=== PATIENT | female | born 1935 | race Caucasian/White ===

== ENCOUNTER → 2017-02-14 | Outpatient (CLI) | payer MEDICARE ==
--- NOTE | 2017-02-14 17:20 | MRI ---
EXAM DESCRIPTION: Lumbar Spine w/o Contrast CLINICAL HISTORY: RADICULOPATHY LUMBAR REGION bilateral leg pain and numbness. COMPARISON: None Available. TECHNIQUE: MRI of the lumbar spine is performed according to our usual protocol with axial and sagittal multi sequence imaging. FINDINGS: Multilevel advanced degenerative changes with dextroscoliosis of the spine centered at the L1-2 level with advanced endplate degenerative changes and disc narrowing along the left side at this level and on the right particularly at the L4-5 level. No aortic aneurysm or retroperitoneal or paraspinous abnormality is seen. Marrow destructive changes are not apparent. The conus is positioned at the lower T12 level with no evidence of intradural or intramedullary abnormality noted. Diffuse disc desiccation and narrowing is present with no specific abnormality noted at the lower thoracic spine. At T12-L1 1 moderate bulging annulus without severe stenosis is present. L1-2: Disc degeneration and desiccation with endplate reactive changes on the left along the lesser curvature of the scoliotic spine with left foraminal narrowing and lateral recess narrowing with adequate canal and neural foramen centrally and on the right. A lateralizing herniation is not apparent. L2-3: Disc desiccation and narrowing and degeneration with asymmetric left lateral recess and foraminal encroachment from the scoliotic curve with adequate canal and foramina to the right of midline. Very slight retrolisthesis at this level noted. L3-4: Disc desiccation and broad-based annular bulge with adequate canal with moderately narrowed right neural foramen and adequate left neural foramen at this level. A lateralizing herniation is not apparent. L4-5: Annular bulge and disc desiccation with severely degenerative right facet joint with marked narrowing of the right lateral recess and neural foramen. Mild central spinal canal stenosis is present with encroachment predominantly on the right from the facet disease and reversal of the scoliotic curve L5-S1: Disc desiccation and annular bulge with adequate central canal and severe right sided facet arthropathy encroaching particularly upon the right L5 neural foramen with adequate left neural foramen. IMPRESSION: 1. Advanced multilevel diffuse disc degeneration and narrowing and disc desiccation with moderately severe S-shaped scoliosis of the thoracic spine convex to the right at the L1-2 level with reversal of the curve at the lumbosacral junction. 2. On the right there is significant right L4 and right L5 foraminal narrowing with borderline central canal stenosis and lateral recess stenosis on the right at the L4-5 level. 3. Adequate spinal canal with predominant left lateral recess and foraminal stenosis at L1-2 and L2-3. 4. At L3-4 the changes are relatively symmetric with the right L3 neural foramen and moderately narrowed. Electronically signed by: Nitesh Santa MD 02/14/2017 5:18 PM CDT
== END | disposition home or self-care (01) ==
LOC: MRI 08:08
PROVIDERS: ATTEND Family Medicine
DX: M51.36 Other intervertebral disc degeneration, lumbar region (principal); M54.16 Radiculopathy, lumbar region

== ENCOUNTER → 2017-12-15 | Outpatient (CLI) | payer MEDICARE ==
--- NOTE | 2017-12-16 13:19 | MAM ---
EXAM DESCRIPTION: 3D Screening BILATERAL : Digital Mammography. CLINICAL HISTORY: 82 years Female SCREENING . Breast cancer left 1997 with mastectomy. Sister with breast cancer. Childbirth. Postmenopausal. Has taken HRT 5 or more years ago.. COMPARISON: Right breast digital 2-D mammography 10/20/2015.. No prior reports available. TECHNIQUE: Right CC and MLO projection full-field images, 3-D tomosynthesis digital mammographic technique. CAD not utilized. Right 2-D digital full-field images, MLO and CC projections, non-displaced, with CAD. FINDINGS: Right breast parenchymal density pattern is: Scattered areas of fibroglandular density. No skin thickening or nipple retraction. Right breast vascular calcifications. Solitary microcalcifications. No focal, stellate mass or density, focal asymmetry , and no suspicious microcalcifications right breast. Stable mammograms compared to prior study, taking into account differences in mammographic technique IMPRESSION: BI-RADS CATEGORY: 2 - BENIGN FINDINGS. FOLLOW UP: Routine digital right breast screening, one year interval from November 2017. Written communication explaining the IMPRESSION and follow-up, will be mailed to the patient and referring health care provider. According to the [employer], yearly mammograms are recommended starting at age 40 and continuing as long as a woman is in good health. Any breast change noted on a breast self-exam should be reported promptly to the patient's healthcare provider. Breast MRI is recommended for women with an approximately 20-25% or greater lifetime risk of breast cancer, including women with a strong family history of breast or ovarian cancer and women who have been treated for Hodgkin's disease. A negative mammographic report should not delay tissue diagnosis in patients with significant clinical history or physical findings. Extremely dense breast tissue limits the sensitivity of digital mammography. Electronically signed by: Howard Cabrera MD 12/16/2017 1:18 PM CDT
== END ==
LOC: MAMMO 08:25
PROVIDERS: ATTEND Family Medicine
DX: Z12.31 Encounter for screening mammogram for malignant neoplasm of breast (principal)

== ENCOUNTER 2018-04-24 05:25 | Day surgery (SDC) | payer MEDICARE ==
[2018-04-24] MEDS ORDERED: TOBRAMYCIN SULF 0.3 % OPHT SOL 1 DROP OPHTH ONE (06:01)
[2018-04-24] MEDS ORDERED: TROP 1%/CYCLOPEN 1%/PHENYL 2% DROPS ONE (06:01)
[2018-04-24] MEDS ORDERED: PROPARACAINE 0.5% OPHTH SOL 15 ML BTTL ONE (06:01)
[2018-04-24] MEDS ORDERED: MIDAZOLAM INJ 2 MG/2 ML VIAL ONE (06:38)
== END 2018-04-24 09:00 | disposition home or self-care (01) ==
LOC: AMB 05:25
PROVIDERS: ATTEND Ophthalmology
DX: H26.492 Other secondary cataract, left eye (principal)

== ENCOUNTER → 2019-01-30 | Outpatient (CLI) | payer MEDICARE | LOC: GMAH 10:40 | PROVIDERS: ATTEND Family Medicine | DX: I10 Essential (primary) hypertension (principal) ==

== ENCOUNTER 2019-02-02 13:22 | Observation (INO) | payer MEDICARE ==
--- NOTE | 2019-02-02 13:50 | ED.PDOC ---
History of Present Illness - General Chief Complaint: General Stated Complaint: fall; right leg heaviness Time Seen by Provider: 02/02/19 13:32 Source: patient Exam Limitations: no limitations - History of Present Illness Initial Comments: SHE WAS DOING LAPS IN HER SWIMMING POOL. SHE DID 40 LAPS AND SUDDENLY SHE FELT DIZZY (AROUND 10 AM) AND WHILE TRYING TO GET OUT OF THE SWIMMING POOL SHE NOTICED THAT SHE WAS DRAGGING HER RIGHT LEG. WITH DIFFICULTY SHE WAS ABLE TO GET OUT OF THE POOL AND THEN CRAWLED TO HER HOME WHERE SHE CALLED FOR ASSISTANCE. SHE MANAGED TO MOVE WITH HER WALKER AND THEN HER DAUGHTER BROUGHT HER BY POV TO THE ED. SHE VOICES THAT SHE HAS HAD A TIA IN THE PAST, SUFFERS OF HTN AND HAS PERIPHERAL NEUROPATHY. DR. CALHOUN GAVE HER A CLEAN BILL OF HEALTH JUST LAST WEEK. SHE DENIES DYSARTHRIA OR CONFUSION. Timing/Duration: 4-6 hours Severity: moderate Improving Factors: nothing Worsening Factors: nothing Associated Symptoms: denies symptoms Allergies/Adverse Reactions: Allergies NO KNOWN ALLERGY Allergy (Verified 04/01/16 17:27) Home Medications: Ambulatory Orders Gabapentin 1,200 mg PO BEDTIME 04/01/16 Hydrochlorothiazide 12.5 mg PO DAILY 02/02/19 Losartan Potassium 100 mg PO DAILY 02/02/19 Review of Systems - Review of Systems Constitutional: States: no symptoms reported EENTM: States: no symptoms reported Respiratory: States: no symptoms reported Cardiology: States: no symptoms reported Gastrointestinal/Abdominal: States: no symptoms reported Genitourinary: States: no symptoms reported Musculoskeletal: States: no symptoms reported Skin: States: no symptoms reported Neurological: States: weakness Endocrine: States: no symptoms reported Hematologic/Lymphatic: States: no symptoms reported Past Medical History (General) - Patient Medical History Hx Seizures: No Hx Stroke: No Hx Asthma: No Hx of COPD: No Hx Congestive Heart Failure: No Hx Pacemaker: No Hx Hypertension: Yes Hx Diabetes: No Hx Gastroesophageal Reflux: No Hx MRSA: No - Social History Hx Alcohol Use: No Hx Substance Use: No Hx Physical Abuse: No Hx Emotional Abuse: No Family Medical History - Family History Mother Living Status: Age at (years of age): 95 Cause of : PA Hx Family Asthma: No Hx Family Congestive Heart Failure: No Hx Family Hypertension: No Hx Family Stroke: No Hx Cardiac Disease: No Hx Family Diabetes: No Hx Family Cancer: No Father Living Status: Hx Cardiac Disease: Yes Physical Exam - Physical Exam General Appearance: Alert, Well Developed, Well Groomed Eye Exam: left normal, left abnormal EOM Ears, Nose, Throat: hearing grossly normal Neck: non-tender Respiratory: chest non-tender, lungs clear Cardiovascular/Chest: normal peripheral pulses, regular rate, rhythm Gastrointestinal/Abdominal: non tender, no organomegaly Back Exam: other - HAS A HX OF SCOLIOSIS Extremity: normal range of motion Neurologic: no motor/sensory deficits, alert, normal mood/affect - NO MOTOR WEAKNESS NOTED. ABLE TO MOVE ALL FOUR EXTREMITIES, MOTOR STRENGTH 5/5 ALL FOUR EXTREMITIES. , oriented x 3 Skin Exam: normal color Progress - Progress Progress: 02/02/19 15:32 I HAVE AMBULATED THIS PATIENT TWISE. SHE IS ABLE TO WALK WITH HER QUAD CANE, BUT VOICES THAT SHE IS STILL FEELING THAT LEG SOMEWHAT WEAK. THE LAST TIME IS VOICES THAT THE WEAKNESS SEEMS IMPROVED. I HAVE SPOKEN TO MARIBELL PRECIADO, HOSPITALIST AND WILL KEEP IN ONSERVATION. - Results/Orders Results/Orders: EKG: HR OF 59, OK INTERVAL OF 122, QRS OF 70, QTC OF 421, AXES OF 6 DEGREES. IMPRESSION: SINUS BRADYCARDIA 02/02/19 14:00 EKG STAT Laboratory Results WBC 6.5 K/mm3 (4.8-10.8) 02/02/19 14:06 RBC 4.84 M/mm3 (4.20-5.40) 02/02/19 14:06 Hgb 14.7 gm/dL (12.0-16.0) 02/02/19 14:06 Hct 44.6 % (36.0-47.0) 02/02/19 14:06 MCV 92.1 fl (81.0-99.0) 02/02/19 14:06 MCH 30.3 pg (27.0-31.0) 02/02/19 14:06 MCHC 32.9 g/dL (33.0-37.0) L 02/02/19 14:06 RDW 14.5 % (11.5-14.5) 02/02/19 14:06 Plt Count 223 K/mm3 (130-400) 02/02/19 14:06 MPV 8.7 fl (7.40-10.4) 02/02/19 14:06 Absolute Neuts (auto) 4.90 K/uL (1.8-6.8) 02/02/19 14:06 Absolute Lymphs (auto) 1.10 K/uL (1.0-3.4) 02/02/19 14:06 Absolute Monos (auto) 0.40 K/uL (0.2-0.8) 02/02/19 14:06 Absolute Eos (auto) 0.00 K/uL (0.0-0.4) 02/02/19 14:06 Absolute Basos (auto) 0.00 K/uL (0.0-0.1) 02/02/19 14:06 Neutrophils % 75.4 % (42.0-78.0) 02/02/19 14:06 Lymphocytes % 16.9 % (20.0-50.0) L 02/02/19 14:06 Monocytes % 6.8 % (2.0-9.0) 02/02/19 14:06 Eosinophils % 0.4 % (1.0-5.0) L 02/02/19 14:06 Basophils % 0.5 % (0.0-2.0) 02/02/19 14:06 ESR 2 mm/hr (0-30) 02/02/19 14:06 PT 10.4 SECONDS (9.0-10.9) 02/02/19 14:06 INR 1.04 (0.9-1.15) 02/02/19 14:06 PTT (SP) 24.4 SECONDS (21.8-31.6) 02/02/19 14:06 Sodium 143 mmol/L (135-145) 02/02/19 14:06 Potassium 3.5 mmol/L (3.6-5.0) L 02/02/19 14:06 Chloride 105 mmol/L (101-111) 02/02/19 14:06 Carbon Dioxide 27 mmol/L (21-31) 02/02/19 14:06 Anion Gap 14.5 (12-18) 02/02/19 14:06 BUN 18 mg/dL (7-18) 02/02/19 14:06 Creatinine 1.00 mg/dL (0.6-1.3) 02/02/19 14:06 BUN/Creatinine Ratio 18.0 (10-20) 02/02/19 14:06 Random Glucose 124 mg/dL (70-105) H 02/02/19 14:06 Serum Osmolality 288.3 mOsm/L (275-295) 02/02/19 14:06 CT HEAD: NO ABNORMALITY Calcium 9.7 mg/dL (8.4-10.2) 02/02/19 14:06 Total Bilirubin 0.8 mg/dL (0.2-1.0) 02/02/19 14:06 AST 22 IU/L (10-42) 02/02/19 14:06 ALT 13 IU/L (10-60) 02/02/19 14:06 Alkaline Phosphatase 68 IU/L (42-121) 02/02/19 14:06 Serum Total Protein 7.2 gm/dL (6.4-8.2) 02/02/19 14:06 Albumin 4.0 g/dl (3.2-5.5) 02/02/19 14:06 Globulin 3.2 gm/dL (2.3-3.5) 02/02/19 14:06 Albumin/Globulin Ratio 1.3 (1.1-1.9) 02/02/19 14:06 Urine Color Yellow (Yellow) 02/02/19 14:47 Urine Appearance Clear (Clear) 02/02/19 14:47 Urine pH 7.0 (4.5-7.8) 02/02/19 14:47 Ur Specific [place] 1.015 (1.005-1.030) 02/02/19 14:47 Urine Protein Negative mg/dL 02/02/19 14:47 Urine Glucose (UA) Negative mg/dL (Negative) 02/02/19 14:47 Urine Ketones Negative mg/dL (NEGATIVE) 02/02/19 14:47 Urine Blood Negative (Negative) 02/02/19 14:47 Urine Nitrite Negative 02/02/19 14:47 Urine Bilirubin Negative (NEGATIVE) 02/02/19 14:47 Urine Urobilinogen 0.2 mg/dL (0.2-1.0) 02/02/19 14:47 Ur Leukocyte Esterase Negative (Negative) 02/02/19 14:47 Urine RBC 0 /hpf 02/02/19 14:47 Urine WBC 0-1 /hpf 02/02/19 14:47 Ur Epithelial Cells 0-1 /hpf 02/02/19 14:47 Urine Bacteria 0 02/02/19 14:47 CT HEAD: NO ABNORMALITY NOTED. Departure - Departure Clinical Impression: Right leg weakness Time of Disposition: 15:34 Disposition: Admit Patient Condition: Good Departure Forms: ED Discharge - Pt. Copy, Patient Portal Self Enrollment Referrals: Seth Calhoun MD [Primary Care Provider] - 1-2 Weeks Home Medications: Ambulatory Orders Gabapentin 1,200 mg PO BEDTIME 04/01/16 Hydrochlorothiazide 12.5 mg PO DAILY 02/02/19 Losartan Potassium 100 mg PO DAILY 02/02/19 Decision To Admit - Decistion To Admit Decision to Admit Date: 01/26/19 Decision to Admit Time: 15:34
--- NOTE | 2019-02-02 14:33 | CT ---
Study: CT of the Head. Indication: RIGHT LEG WEAKNESS Technique: Axial CT images of the head were acquired without intravenous contrast. This exam was performed according to our departmental dose-optimization program, which includes automated exposure control, adjustment of the mA and/or kV according to patient size and/or use of iterative reconstruction technique. Comparison: None. Findings: No acute ischemia, acute hemorrhage, mass, mass effect, midline shift, or extra-axial fluid collection identified by CT. Ventricles are normal in configuration without hydrocephalus. Extensive hypoattenuation of the periventricular and subcortical white matter noted. This is nonspecific but most consistent with chronic microvascular ischemic change. Global parenchymal volume loss and intracranial atherosclerosis noted as well. Paranasal sinuses are adequately aerated. Mastoid air cells are adequately aerated. Osseous structures and soft tissues are unremarkable. Impression: No acute intracranial abnormality by CT. Senescent changes. Electronically signed by: Blue Burroughs MD 02/02/2019 2:31 PM CDT
--- NOTE | 2019-02-02 16:06 | HP ---
SUPERVISING PHYSICIAN: Robert Clark M.D. CHIEF COMPLAINT: Right leg weakness and dizziness. HISTORY OF PRESENT ILLNESS: This is a 89 year-old female patient who was doing laps in her swimming pool. She did 40 laps and suddenly she felt very dizzy. Her ears were very stopped up. She tried to get out of the pool and she was dragging her right leg. She was able to get out of her pool with difficulty and then crawled into her home where she called her daughter for assistance. She did manage to get up and use her walker. Her daughter brought her to the Emergency Room in a private vehicle. In the Emergency Room, most of her symptoms had resolved. She still was having some weakness in that right leg and she had some weakness in her right arm, but she was able to speak clearly. There was no altered mental status. There was no facial drooping or facial numbness. She did have an elevated blood pressure on admission to the hospital which showed a blood pressure of 176/87. She has had a transient ischemic attack in the past. In the E. R., her vital signs showed a temperature of 97.7 with a heart rate of 84, blood pressure 176/87, subsequent blood pressure is 157/105, respiratory rate 20, O2 sat 93% on room air. Lab was drawn and CBC was unremarkable. She had an ESR of 2. Chemistry was unremarkable with the exception of her potassium was slightly low at 3.5 and glucose was slightly high at 124. Urinalysis was negative. Head CT showed no acute intracranial abnormality. I was called for hospital admission. PAST MEDICAL HISTORY: 1. Hyperlipidemia. 2. Osteoarthritis. 3. History of breast cancer. 4. History of transient ischemic attack. 5. Chronic back pain with scoliosis. PAST SURGICAL HISTORY: 1. Appendectomy. 2. Total hysterectomy. 3. Tonsillectomy and adenoidectomy. 4. Left radical mastectomy. 5. Bilateral bunionectomies. CURRENT MEDICATIONS: Per the EMR and awaiting verification. ALLERGIES: NO KNOWN DRUG ALLERGIES. FAMILY HISTORY: Noncontributory. SOCIAL HISTORY: She lives in [place]. She is . She denies any tobacco, ETOH or illicit drug use. REVIEW OF SYSTEMS: CONSTITUTIONAL: Denies fever, chills or weight changes. HEENT: Negative for sinus symptoms, ear pain, vision changes or sore throat. RESPIRATORY: Negative for coughing, wheezing or shortness of breath. CARDIOVASCULAR: Negative for chest pain, palpitations or tachycardia. GASTROINTESTINAL: Negative for nausea, vomiting, diarrhea, constipation or abdominal pain. GENITOURINARY: Negative for dysuria, polyuria, or hematuria. NEUROLOGIC: As per history of present illness. MUSCULOSKELETAL: Positive for back pain and scoliosis. Negative for arthralgias. PHYSICAL EXAMINATION: VITAL SIGNS: Temperature 97.8, heart rate 67, blood pressure 146/82, respiratory rate 18, O2 sat 96% on room air. GENERAL: This is an 83 year-old female patient sitting up in her chair in her hospital room. She is in no acute distress. HEENT: Normocephalic and atraumatic. Pupils are equal and reactive. Oropharynx is clear. NECK: Supple without mass. RESPIRATORY: Essentially clear to auscultation bilaterally. CHEST: There is equal rise and fall of the chest with inspiration and expiration. CARDIOVASCULAR: Regular rate and rhythm. GASTROINTESTINAL: Abdomen is soft, nondistended, non-tender. Bowel sounds are positive. EXTREMITIES: No cyanosis, clubbing, or edema. She has equal seat pack inspector bilaterally upper and lower extremities with equal strength. Pedal pulses are palpable at +2 bilaterally. INTEGUMENT: Skin is warm and dry. NEUROLOGIC: She is awake, alert and oriented times three. Cranial nerves II- XII are grossly intact. Facial features are symmetrical. There are no localizing or focalizing neuromotor deficits. LABORATORY: Labs and films are as per the History of Present Illness. ASSESSMENT: 1. Transient ischemic attack with right sided weakness and an initial elevated blood pressure at 176/87. 2. Hypertension currently on medications. 3. Osteoarthritis. 4. Scoliosis with chronic back pain. 5. History of left breast cancer. PLAN: We will place the patient in observation. I have initiated the TIA/stroke guidelines. She will have neuro checks scheduled as well as a PPI for ulcer prophylaxis and Lovenox for DVT prophylaxis. I will start her on a baby aspirin and she will need to continue that at home. She has never had a carotid ultrasound and she will need that on discharge as well as an MRI of the brain and continued followup with either Dr. Calhoun, her current primary care physician, or Dr. Clark. Hopefully she can be discharged home with close followup with her PCP. I have restarted her home medications. Will continue to monitor closely and follow as needed. #[id number] [facility]
[2019-02-02] MEDS ORDERED: ONDANSETRON INJ 4 MG/2 ML VIAL IV PRN (16:49)
[2019-02-02] MEDS ORDERED: SODIUM CHLORIDE 0.9% (FLUSH) 10 ML SYG IV PRN (16:49)
[2019-02-02] MEDS ORDERED: ACETAMINOPHEN 325 MG TAB PO PRN (16:49)
[2019-02-02] MEDS ORDERED: TEMAZEPAM 15 MG CAP PO PRN (16:49)
[2019-02-02] MEDS ORDERED: IV SET AND CAP CHANGE INJ INJ SCH (17:00)
[2019-02-02] MEDS ORDERED: GABAPENTIN 300 MG CAP ONE (18:06)
[2019-02-02] MEDS ORDERED: IBUPROFEN 400 MG TAB ONE (18:06)
[2019-02-02] MEDS ORDERED: IBUPROFEN 400 MG TAB PO PRN (18:07)
[2019-02-02] MEDS ORDERED: GABAPENTIN 300 MG CAP PO SCH ×3 (18:21→18:30)
[2019-02-02] MEDS ORDERED: OMEPRAZOLE CAP 20 MG CAP ONE (19:24)
[2019-02-02] MEDS ORDERED: ENOXAPARIN SODIUM 40 MG/0.4 ML SYG SUBCU SCH (21:00)
[2019-02-02] MEDS ORDERED: GABAPENTIN 400 MG CAP PO SCH (21:00)
[2019-02-02] MEDS: SODIUM CHLORIDE 0.9% (FLUSH) 10 ML SYG IV SCH (21:07)
[2019-02-03] MEDS ORDERED: OMEPRAZOLE CAP 20 MG CAP PO SCH (06:30)
[2019-02-03] MEDS: SODIUM CHLORIDE 0.9% (FLUSH) 10 ML SYG IV SCH (08:32)
[2019-02-03] MEDS ORDERED: POTASSIUM CHLORIDE 20 MEQ TAB PO ONE (08:45)
[2019-02-03] MEDS ORDERED: ASPIRIN (CHEWABLE) 81 MG TAB PO SCH (09:00)
[2019-02-03] MEDS ORDERED: LOSARTAN POTASSIUM 100 MG TAB PO SCH (09:00)
[2019-02-03] MEDS ORDERED: hydroCHLOROthiazide 12.5 MG CAP PO SCH (09:00)
[2019-02-03 13:40] VITALS: BP 129/76; TEMP 97; O2SAT 99
[2019-02-03] MEDS ORDERED: GABAPENTIN 300 MG CAP PO SCH (18:08)
--- NOTE | 2019-02-03 20:40 | DS ---
SUPERVISING PHYSICIAN: Robert Clark M.D. DISCHARGE DIAGNOSIS: 1. Transient ischemic attack with right sided weakness and an initial elevated blood pressure at 176/87. 2. Hypertension currently on medications. 3. Osteoarthritis. 4. Scoliosis with chronic back pain. 5. History of left breast cancer with mastectomy. HISTORY OF PRESENT ILLNESS: This is a 83 year-old female patient who was doing laps in her swimming pool. She did 40 laps and suddenly she felt very dizzy. Her ears were stopped up. She tried to get out of the pool but was dragging her right leg. She was able to get out of her pool with difficulty but crawled into her home where she called her daughter for assistance. She did eventually manage to get up and use her walker. Her daughter brought her to the Emergency Room in a private vehicle. In the Emergency Room, most of her symptoms had resolved although her weakness in that right leg continued. She had some weakness in her right arm, but she was able to speak clearly. There was no altered mental status. There was no facial drooping or facial numbness. She had an elevated blood pressure on admission to the hospital that was 176/87. She has had a transient ischemic attack in the past. Her vital signs in the E. R. showed a temperature of 97.7 with a heart rate of 84, blood pressure 176/87, subsequent blood pressure was 157/105, respiratory rate 20, O2 sat 93% on room air. Labs were drawn and CBC was unremarkable. ESR was 2. Chemistry was unremarkable with the exception of her potassium was slightly low at 3.5 and glucose was slightly high at 124. Urinalysis was negative. Head CT showed no acute intracranial abnormality. The patient was placed in observation in the hospital. HOSPITAL COURSE: The patient was placed in observation. The TIA/stroke guidelines were initiated with neuro checks. She received a PPI for ulcer prophylaxis as well as Lovenox for DVT prophylaxis. She was also started on a baby aspirin as well as her routine medications. She has had a neuro consultation in the past with Dr. Bee in [place], but Dr. Bee has discharged her. She also complained of some low back pain as well as weakness in that right leg. In addition to her Gabapentin that she takes routinely at night, a 300 mg dose of Gabapentin was added at 9:00 AM and 3:00 PM. We also gave her a sleeping pill and physical therapy was ordered. This morning Physical Therapy saw her and thought she would benefit from a rehab facility. Her right leg was extremely weak. The patient agreed to go to [facility] in [place]. She will be discharged to [facility] today to continue her rehabilitation. LABORATORY: followup labs showed a CBC that was unremarkable. Chemistry was unremarkable with the exception of her potassium was slightly low at 3.5. Triglycerides were 67, LDL was 138.6 and HDL was 53. Head CT is per the History of Present Illness. DISCHARGE PLAN: The patient will be discharged to [facility] in [place]. She is to resume her previous diet as well as increase her activity as per Physical Therapy. The patient's blood pressure should be monitored as her blood pressure medicines may need to be adjusted and depending on what testing they run at [facility], the patient needs a carotid ultrasound as well as an MRI of the brain and a neurologic workup for possible stroke. She is to have a followup appointment with Dr. Nima Calhoun or Robert Clark after discharge from [facility]. Her routine medications will be continued with the addition of the Gabapentin during the day, the 81 mg aspirin and Temazepam for sleep. She is to return to the hospital or followup with her primary care physician for any problems or complications. DISCHARGE MEDICATIONS: 1. Gabapentin 1200 at bedtime. 2. Hydrochlorothiazide. 3. Losartan. 4. Acetaminophen. 5. 81 mg aspirin. 6. Gabapentin 300 mg at 9:00 AM and 3:00 PM. 7. Motrin. 8. Temazepam. #[id number] [facility]
== END 2019-02-03 15:24 ==
LOC: ER 13:22 → MS 16:04
PROVIDERS: ADMIT Nurse Practitioner Acute Care; ATTEND Nurse Practitioner Acute Care
DX: G45.9 Transient cerebral ischemic attack, unspecified (principal); M62.81 Muscle weakness (generalized); I10 Essential (primary) hypertension; M19.90 Unspecified osteoarthritis, unspecified site; G89.29 Other chronic pain; M41.26 Other idiopathic scoliosis, lumbar region; E87.6 Hypokalemia; E78.5 Hyperlipidemia, unspecified; Z85.3 Personal history of malignant neoplasm of breast; Z90.12 Acquired absence of left breast and nipple; Z79.82 Long term (current) use of aspirin; Z79.899 Other long term (current) drug therapy; Z86.73 Personal history of transient ischemic attack (TIA), and cerebral infarction without residual deficits
CPT/HCPCS: 96372; J1650; 80053 ×2; 80061; 36415 ×2; 81001; 85025 ×2; 83735; 85730; 85610; 85651; 70450; 94760 ×5; 97530; G8978; G8979; 97162; 99285; 93005; G0378

== ENCOUNTER 2019-12-14 11:14 | Emergency (ER) | payer MEDICARE ==
[2019-12-14] MEDS ORDERED: TETANUS,DIPHTHERIA,PERTUSSIS 1 EA SYG IM ONE (11:30)
--- NOTE | 2019-12-14 11:33 | ED.PDOC ---
History of Present Illness - General Chief Complaint: Head Injury Stated Complaint: Scalp laceration Time Seen by Provider: 12/14/19 11:20 Source: patient, RN notes reviewed, Vital Signs reviewed, family Exam Limitations: no limitations - History of Present Illness Initial Comments: This is an 84-year-old female presenting to the emergency department after she fell and hit the back of her head on her bathtub just prior to arrival. She states she was bending over to look in a drawer, lost her balance, and fell back. She denies any preceding chest pain, shortness of breath or dizziness. She denies any LOC. She has a mild headache at this time. No changes in mental status, no vomiting. She takes aspirin only, no other blood thinners. She denies any neck pain. No weakness/numbness/tingling. Allergies/Adverse Reactions: Allergies NO KNOWN ALLERGY Allergy (Verified 12/14/19 11:55) Home Medications: Ambulatory Orders RX: Gabapentin 1,200 mg PO BEDTIME 04/01/16 RX: Hydrochlorothiazide 12.5 mg PO DAILY 02/02/19 RX: Losartan Potassium 100 mg PO DAILY 02/02/19 RX: Aspirin [Baby Aspirin] 81 mg PO DAILY chwtab 02/03/19 Review of Systems - Review of Systems Constitutional: Denies: chills, fever EENTM: Denies: ear pain, nose pain, nose congestion, throat pain, mouth pain Respiratory: Denies: cough, short of breath Cardiology: Denies: chest pain, edema, palpitations, syncope Gastrointestinal/Abdominal: Denies: abdominal pain, diarrhea, nausea, vomiting Genitourinary: Denies: dysuria, hematuria, pain Musculoskeletal: Denies: back pain, joint pain, joint swelling, muscle pain, muscle stiffness, neck pain Neurological: States: headache. Denies: numbness, paresthesia, pre-existing deficit, tingling, tremors, weakness Endocrine: States: no symptoms reported Hematologic/Lymphatic: States: no symptoms reported Past Medical History (General) - Patient Medical History Hx Seizures: No Hx Stroke: No Hx Asthma: No Hx of COPD: No Hx Cardiac Disorders: No Hx Congestive Heart Failure: No Hx Pacemaker: No Hx Hypertension: Yes Hx Diabetes: No Hx Gastroesophageal Reflux: No Hx MRSA: No - Vaccination History Hx Influenza Vaccination: Yes Hx Pneumococcal Vaccination: Yes - Social History Hx Alcohol Use: No Hx Substance Use: No Hx Physical Abuse: No Hx Emotional Abuse: No Family Medical History - Family History Father Living Status: Hx Cardiac Disease: Yes Mother Living Status: Age at (years of age): 95 Cause of : DC Hx Family Asthma: No Hx Family Congestive Heart Failure: No Hx Family Hypertension: No Hx Family Stroke: No Hx Cardiac Disease: No Hx Family Diabetes: No Hx Family Cancer: No Physical Exam - Physical Exam General Appearance: Alert, Comfortable Head Injury: lacerations, other - 3 cm laceration to the occiput. No hematomas, negative king sign, negative raccoon eyes. 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 Patient reported some headache and is on aspirin. No LOC. CT was performed due to age and presence of headache, no acute process. She does have microvascular changes on CT, but certainly no evidence of stroke on clinical exam. Laceration was closed in the emergency department. Head injury warnings were given. Strict warnings given to return the emergency room for worsening headache, changes mental status, vomiting, unequal pupils, or any other concerns. Patient will have a family member with her tonight who will be able to bring her to the ER if any further changes occur. Darrel Meier DO [facility] #[id number] - Results/Orders Results/Orders: EXAM: Head CLINICAL HISTORY: Fall, head injury COMPARISON STUDY: CT head from February 02, 2019 TECHNICAL: Non-contrasted CT images of the brain were performed. FINDINGS: There is mild diffuse cerebral and cerebellar atrophy. There are moderate periventricular white matter low-density changes suggesting microvascular disease. 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 There is no intracranial hemorrhage, mass, or mass effect. There are no imaging findings that would suggest an acute territorial infarction. The calvarium is intact. IMPRESSION: MODERATE MICROVASCULAR WHITE MATTER CHANGES WITHOUT CHANGES OF AN ACUTE INTRACRANIAL ABNORMALITY. ACUTE INFARCT MAY BE INAPPARENT ON A BACKGROUND OF MICROVASCULAR DISEASE. MRI CAN BE PERFORMED IF CLINICALLY INDICATED. This exam was performed according to our departmental dose-optimization program, which includes automated exposure control, adjustment of the mA and/or kV according to patient size and/or use of iterative reconstruction technique. Electronically signed by: Gerber Rabago MD 12/14/2019 12:05 PM Patient is essentially asymptomatic, no signs/symptoms of stroke. I do not feel MRI is indicated at this time Procedures - Laceration/Wound Repair Posterior Occipital Wound Length (cm): 3 Wound's Depth, Shape: linear Wound Explored: no foreign body removed Anesthesia: Lidocaine w/ Epi Volume Anesthetic (cc's): 5 Wound Repaired With: sutures Suture Size/Type: 4:0, prolene Number of Sutures: 4 Layer Closure?: Yes Deep Layer Suture Size/Type: 4:0, vicryl Number Deep Layer Sutures: 2 - To close galea Sterile Dressing Applied?: Yes Splint Applied?: No Sling Applied?: No Departure - Departure Clinical Impression: Fall at home Qualifiers: Encounter type: initial encounter Qualified Code(s): W19.XXXA - Unspecified fall, initial encounter Closed head injury without loss of consciousness Qualifiers: Encounter type: initial encounter Qualified Code(s): S09.90XA - Unspecified injury of head, initial encounter Laceration of scalp Qualifiers: Encounter type: initial encounter Qualified Code(s): S01.01XA - Laceration without foreign body of scalp, initial encounter Disposition: Discharge to Home or Self Care Condition: Good Departure Forms: ED Discharge - Pt. Copy, Patient Portal Self Enrollment Instructions: Wound Care (DC), Closed Head Injury (DC), DI for Closed Head Injury, DI for Concussion Referrals: Seth Calhoun MD [Active Staff] - 1-2 Weeks Home Medications: Ambulatory Orders RX: Gabapentin 1,200 mg PO BEDTIME 04/01/16 RX: Hydrochlorothiazide 12.5 mg PO DAILY 02/02/19 RX: Losartan Potassium 100 mg PO DAILY 02/02/19 RX: Aspirin [Baby Aspirin] 81 mg PO DAILY chwtab 02/03/19 Additional Instructions: Keep wound clean and dry. Sutures will need to be removed in 7 to 10 days. Return the emergency room immediately for worsening headache, changes in mental status, vomiting, unequal pupils, or any other concerns. Check wound daily. Return to the emergency room for increased redness, fever, pus draining from wound, increased swelling, or new concerns
--- NOTE | 2019-12-14 12:07 | CT ---
EXAM: Head CLINICAL HISTORY: Fall, head injury COMPARISON STUDY: CT head from February 02, 2019 TECHNICAL: Non-contrasted CT images of the brain were performed. FINDINGS: There is mild diffuse cerebral and cerebellar atrophy. There are moderate periventricular white matter low-density changes suggesting microvascular disease. 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 There is no intracranial hemorrhage, mass, or mass effect. There are no imaging findings that would suggest an acute territorial infarction. The calvarium is intact. IMPRESSION: MODERATE MICROVASCULAR WHITE MATTER CHANGES WITHOUT CHANGES OF AN ACUTE INTRACRANIAL ABNORMALITY. ACUTE INFARCT MAY BE INAPPARENT ON A BACKGROUND OF MICROVASCULAR DISEASE. MRI CAN BE PERFORMED IF CLINICALLY INDICATED. This exam was performed according to our departmental dose-optimization program, which includes automated exposure control, adjustment of the mA and/or kV according to patient size and/or use of iterative reconstruction technique. Electronically signed by: Gerber Rabago MD 12/14/2019 12:05 PM CDT
[2019-12-14 13:07] VITALS: BP 150/76; TEMP 97.2; O2SAT 99
== END 2019-12-14 12:59 | disposition home or self-care (01) ==
LOC: ER 11:14
DX: S09.90XA Unspecified injury of head, initial encounter (principal); S01.01XA Laceration without foreign body of scalp, initial encounter; I10 Essential (primary) hypertension; Z79.82 Long term (current) use of aspirin; W18.09XA Striking against other object with subsequent fall, initial encounter; Y92.9 Unspecified place or not applicable

== ENCOUNTER → 2020-05-20 | Outpatient (CLI) | payer MEDICARE | LOC: GMA MATASK 10:44 | PROVIDERS: ATTEND Family Medicine | DX: I10 Essential (primary) hypertension (principal) ==